=== PATIENT | female | born 1955 | race Caucasian/White ===

== ENCOUNTER → 2019-04-15 07:35 | Outpatient (CLI) | payer MEDICARE, OTHER | END | disposition home or self-care (01) | LOC: D.RAD 07:35 | PROVIDERS: ATTEND Internal Medicine Gastroenterology | DX: K21.9 Gastro-esophageal reflux disease without esophagitis (principal); R93.9 Diagnostic imaging inconclusive due to excess body fat of patient; K44.0 Diaphragmatic hernia with obstruction, without gangrene ==